=== PATIENT | female | born 1960 | race Caucasian/White ===

== ENCOUNTER 2016-08-22 18:14 | Emergency (ER) | payer BC ==
--- NOTE | 2016-08-22 20:42 | CT ---
EXAMINATION TYPE: CT brain wo con DATE OF EXAM: 08/22/2016 COMPARISON: NONE INDICATION: Loss of consciousness DLP: 97.70 mGycm, Automated exposure control for dose reduction was used. CONTRAST: None CT of the brain is performed utilizing 3 mm thick sections through the posterior fossa and 3 mm thick sections through the remaining calvarium. Study is performed within 24 hours of arrival to the [facility]. No abnormal hyperdensity is present to suggest an acute intracranial hemorrhage. No mass lesion is evident. No acute infarcts are evident. Ventricles and sulci are appropriate for the patient age. Paranasal sinuses and mastoid air cells within the [id number] are clear. No acute fractures within the [id number]. IMPRESSIONS: 1. Normal CT Brain
--- NOTE | 2016-08-22 21:13 | ED ---
Fall HPI - General Source: patient Mode of arrival: ambulatory <Lashonda Green - Last Filed: 08/22/16 21:12> <Delfin Guerrero - Last Filed: 08/22/16 23:12> - General Chief Complaint: Fall Stated Complaint: Fell/nose injury - History of Present Illness Initial Comments: 56-year-old female presented for evaluation of closed head injury and laceration to her nose. She states that she was stepping over something in her kitchen and when she lurch forward she hit the bridge of her nose on a cabinet that was open. This caused her to be dazed for a moment and she fell to the floor without any concurrent head trauma. Her believe that she had a moment of syncope but she states that she was just dazed. She denies any other injuries outside of the laceration to the bridge of her nose. (Delfin Guerrero) - Related Data Home Medications Medication Instructions Recorded Confirmed Multivitamins, Thera [Multivitamin 1 tab PO DAILY 08/22/16 08/22/16 (formulary)] Allergies Allergy/AdvReac Type Severity Reaction Status Date / Time No Known Allergies Allergy Verified 08/22/16 19:36 Review of Systems ROS Other: All systems not noted in ROS Statement are negative. <Lashonda Green - Last Filed: 08/22/16 21:12> ROS Other: All systems not noted in ROS Statement are negative. Constitutional: Denies: fever, chills Eyes: Denies: eye pain, eye discharge ENT: Denies: ear pain, throat pain Respiratory: Denies: cough, dyspnea Cardiovascular: Denies: chest pain, palpitations Endocrine: Denies: fatigue, polydipsia, polyuria Gastrointestinal: Denies: diarrhea Genitourinary: Denies: urgency, dysuria Musculoskeletal: Denies: back pain, arthralgia, myalgia Skin: Reports: other (Small laceration to the bridge of the nose). Denies: rash Neurological: Denies: headache, weakness Psychiatric: Denies: anxiety, depression Hematological/Lymphatic: Denies: easy bleeding, easy bruising <Delfin Guerrero - Last Filed: 08/22/16 23:12> ROS Statement: Those systems with pertinent positive or pertinent negative responses have been documented in the HPI. Past Medical History Past Medical History: No Reported History History of Any Multi-Drug Resistant Organisms: None Reported Past Surgical History: Section Past Psychological History: No Psychological Hx Reported Smoking Status: Never smoker Past Alcohol Use History: None Reported Past Drug Use History: None Reported <Lashonda Green - Last Filed: 08/22/16 21:12> General Exam Limitations: no limitations <Lashonda Green - Last Filed: 08/22/16 21:12> General appearance: alert, in no apparent distress Head exam: Present: atraumatic, normocephalic, normal inspection Eye exam: Present: normal appearance, PERRL, EOMI. Absent: scleral icterus, conjunctival injection, periorbital swelling ENT exam: Present: normal exam, mucous membranes moist Neck exam: Present: normal inspection. Absent: tenderness, meningismus, lymphadenopathy Respiratory exam: Present: normal lung sounds bilaterally. Absent: respiratory distress, wheezes, rales, rhonchi, stridor Cardiovascular Exam: Present: regular rate, normal rhythm, normal heart sounds. Absent: systolic murmur, diastolic murmur, rubs, gallop, clicks GI/Abdominal exam: Present: soft, normal bowel sounds. Absent: distended, tenderness, guarding, rebound, rigid Rectal exam: Present: deferred Extremities exam: Present: normal inspection, full ROM, normal capillary refill. Absent: tenderness, pedal edema, joint swelling, calf tenderness Back exam: Present: normal inspection Neurological exam: Present: alert, oriented X3, CN II-XII intact Psychiatric exam: Present: normal affect, normal mood Skin exam: Present: warm, dry, normal color, other (Laceration to the bridge of the nose). Absent: intact, rash <Delfin Guerrero - Last Filed: 08/22/16 23:12> Procedures - Laceration Laceration #1 Consent Obtained: verbal consent Indication: laceration Site: face (nasal bridge) Size (cm): 2 Description: flap Anesthetic Used: benzocaine 0.25% Anesthesia Technique: local infiltration Amount (mls): 2 Pre-repair: wound explored, irrigated extensively Type of Sutures: nylon Size of Sutures: 6-0 Number of Sutures: 3 Technique: simple, interrupted Patient Tolerated Procedure: well, no complications <Lashonda Green - Last Filed: 08/22/16 21:12> Medical Decision Making <Jami Greenily - Last Filed: 08/22/16 21:12> <Delfin Guerrero - Last Filed: 08/22/16 23:12> - Medical Decision Making 56-year-old female presented for evaluation of nasal bridge laceration and closed head injury. Physical examination the bleeding to the nose is controlled and she denies any head neck or back pain. Laceration was closed by ED PA following CT of the head which showed no acute abnormalities. The patient was informed of these results and through shared decision making it was determined that she would be discharged with instructions to follow with her primary care physician but to return to this facility if symptoms should worsen or persist. The patient acknowledged an understanding of this and apparently agreed with this plan of care. (Delfin Guerrero) Disposition <PeterLashonda - Last Filed: 08/22/16 21:12> Time of Disposition: 21:31 <Delfin Guerrero - Last Filed: 08/22/16 23:12> Clinical Impression: Laceration, Closed head injury Disposition: HOME SELF-CARE Condition: Stable Instructions: Care For Your Stitches (ED), Laceration (ED) Referrals: Breanna Fortune MD [Primary Care Provider] - 1-2 days
[2016-08-22 21:48] VITALS: BP 142/65; PULSE 58; RESP 17; TEMP 98.7
== END 2016-08-22 22:02 | disposition home or self-care (01) ==
LOC: EC 18:14
DX: S01.21XA Laceration without foreign body of nose, initial encounter (principal); S09.90XA Unspecified injury of head, initial encounter; Z79.899 Other long term (current) drug therapy; W22.09XA Striking against other stationary object, initial encounter; Y92.89 Other specified places as the place of occurrence of the external cause
CPT/HCPCS: 12011; 70450; 99283

== ENCOUNTER → 2016-11-28 | Outpatient (CLI) | payer BC ==
--- NOTE | 2016-11-29 09:43 | MM ---
Reason for exam: screening (asymptomatic). Last mammogram was performed 2 years and 9 months ago. History: Patient is postmenopausal and had first child at age 31. Family history of breast cancer in grandmother. Took hormonal contraceptives for 1 year beginning at age 28. Physical Findings: A clinical breast exam by your physician is recommended on an annual basis and results should be correlated with mammographic findings. MG Screening Mammo w CAD Bilateral CC and MLO view(s) were taken. Prior study comparison: February 24, 2014, bilateral MG screening mammo w CAD. April 24, 2007, CAD bilateral diagnostic mammogram. There are scattered fibroglandular densities. No significant changes when compared with prior studies. ASSESSMENT: Negative, BI-RAD 1 RECOMMENDATION: Routine screening mammogram of both breasts in 1 year.
== END | disposition home or self-care (01) ==
LOC: RADMAMWWP 07:29
PROVIDERS: ATTEND Obstetrics & Gynecology
DX: Z12.31 Encounter for screening mammogram for malignant neoplasm of breast (principal)

== ENCOUNTER → 2018-01-10 | Outpatient (CLI) | payer BC ==
--- NOTE | 2018-01-11 13:58 | MM ---
Reason for exam: screening (asymptomatic). Last mammogram was performed 1 year and 1 month ago. History: Patient is postmenopausal and had first child at age 31. Family history of breast cancer in grandmother. Took hormonal contraceptives for 1 year beginning at age 28. Physical Findings: A clinical breast exam by your physician is recommended on an annual basis and results should be correlated with mammographic findings. MG Screening Mammo w CAD Bilateral CC and MLO view(s) were taken. Prior study comparison: November 28, 2016, bilateral MG screening mammo w CAD. February 24, 2014, bilateral MG screening mammo w CAD. The breast tissue is heterogeneously dense. This may lower the sensitivity of mammography. No suspicious abnormality. No significant changes when compared with prior studies. ASSESSMENT: Negative, BI-RAD 1 RECOMMENDATION: Routine screening mammogram of both breasts in 1 year.
== END | disposition home or self-care (01) ==
LOC: RADMAMWWP 07:09
PROVIDERS: ATTEND Obstetrics & Gynecology
DX: Z12.31 Encounter for screening mammogram for malignant neoplasm of breast (principal); Z80.3 Family history of malignant neoplasm of breast
CPT/HCPCS: 77067

== ENCOUNTER → 2020-09-16 | Outpatient (CLI) | payer BC ==
--- NOTE | 2020-09-20 08:47 | MM ---
Reason for exam: screening (asymptomatic). Last mammogram was performed 2 years and 8 months ago. History: Patient is postmenopausal and had first child at age 31. Family history of breast cancer in grandmother. Took hormonal contraceptives for 1 year beginning at age 28. Physical Findings: A clinical breast exam by your physician is recommended on an annual basis and results should be correlated with mammographic findings. MG Screening Mammo w CAD Bilateral CC and MLO view(s) were taken. Prior study comparison: January 10, 2018, bilateral MG screening mammo w CAD. November 28, 2016, bilateral MG screening mammo w CAD. There are scattered fibroglandular densities. There is chronic nodularity in the right breast. No significant changes when compared with prior studies. ASSESSMENT: Benign, BI-RAD 2 RECOMMENDATION: Routine screening mammogram of both breasts in 1 year.
== END | disposition home or self-care (01) ==
LOC: RADMAMWWP 16:31
PROVIDERS: ATTEND Obstetrics & Gynecology
DX: Z12.31 Encounter for screening mammogram for malignant neoplasm of breast (principal); Z78.0 Asymptomatic menopausal state; Z80.3 Family history of malignant neoplasm of breast
CPT/HCPCS: 77067

== ENCOUNTER → 2022-12-28 | Outpatient (CLI) | payer BC ==
--- NOTE | 2022-12-29 21:07 | MM ---
Reason for Exam: Screening (asymptomatic). Last mammogram was performed 2 year(s) and 4 month(s) ago. Patient History: Menarche at age 15. First Full-Term at age 31. Late child-bearing (after 29). Postmenopausal. Hormonal Contraceptives for 1 year from age 28 until age 29. Maternal grandmother had breast cancer. Risk Values: Urmila 5 year model risk: 2.0%. NCI Lifetime model risk: 8.4%. Prior Study Comparison: 11/28/2016 Bilateral Screening Mammogram, [facility]. 01/10/2018 Bilateral Screening Mammogram, [facility]. 09/16/2020 Bilateral Screening Mammogram, [facility]. Tissue Density: The breast tissue is heterogeneously dense. This may lower the sensitivity of mammography. Findings: Analyzed By CAD. There is chronic nodularity on the right. There is no suspicious group of microcalcifications or new suspicious mass in either breast. Overall Assessment: Benign, BI-RAD 2 Management: Screening Mammogram of both breasts in 1 year. . Patient should continue monthly self-breast exams. A clinical breast exam by your physician is recommended on an annual basis. This exam should not preclude additional follow-up of suspicious palpable abnormalities. Note on Urmila scores and lifetime risk: 1. A Urmila score greater than 3% is considered moderate risk. If this is the case, consider specialist referral to assess eligibility for a risk reducing agent. 2. If overall lifetime risk for the development of breast cancer is 20% or higher, the patient may qualify for future screening with alternating mammogram and breast MRI. Electronically signed and approved by: Kalina Alves M.D. Radiologist
== END | disposition home or self-care (01) ==
LOC: RADMAMWWP 14:57
PROVIDERS: ATTEND Family Medicine
DX: Z12.31 Encounter for screening mammogram for malignant neoplasm of breast (principal); Z78.0 Asymptomatic menopausal state; Z80.3 Family history of malignant neoplasm of breast
CPT/HCPCS: 77067